=== PATIENT | female | born 1985 | race Caucasian/White ===

== ENCOUNTER → 2020-09-05 17:58 | Outpatient (BNVA) | payer OTHER, SELFPAY | PROVIDERS: Visit Provider Emergency Medicine | DX: Z20.822 Contact with and (suspected) exposure to COVID-19 (principal); R68.89 Other general symptoms and signs | CPT/HCPCS: 87635 ==

== ENCOUNTER → 2022-05-03 16:24 | Outpatient (BNVA) | payer MEDICAID, SELFPAY | PROVIDERS: Visit Provider Nurse Practitioner Family | DX: Z20.822 Contact with and (suspected) exposure to COVID-19 (principal); R05.9 Cough, unspecified | CPT/HCPCS: 87400; 87426 ==

== ENCOUNTER → 2022-07-07 09:36 | Outpatient (BNVA) | payer MEDICAID, SELFPAY | PROVIDERS: PCP Family Medicine; Visit Provider Emergency Medicine | DX: M79.632 Pain in left forearm (principal); Z98.890 Other specified postprocedural states | CPT/HCPCS: 73090 ==

== ENCOUNTER → 2022-11-17 12:46 | Outpatient (BNVA) | payer MEDICAID, SELFPAY | PROVIDERS: PCP Family Medicine; Visit Provider Nurse Practitioner Family | DX: R69 Illness, unspecified (principal); J06.9 Acute upper respiratory infection, unspecified; Z20.822 Contact with and (suspected) exposure to COVID-19 | CPT/HCPCS: 87400; 87426 ==

== ENCOUNTER → 2022-12-26 10:19 | Outpatient (BNVA) | payer MEDICAID, SELFPAY | PROVIDERS: PCP Family Medicine; Visit Provider Nurse Practitioner Family | DX: R68.89 Other general symptoms and signs (principal) | CPT/HCPCS: 87400; 87426 ==

== ENCOUNTER → 2023-03-24 08:48 | Outpatient (BNVA) | payer MEDICAID, SELFPAY | PROVIDERS: Absent Provider Nurse Practitioner; Referring Provider Nurse Practitioner; Visit Provider Nurse Practitioner | DX: M41.84 Other forms of scoliosis, thoracic region (principal); M54.50 Low back pain, unspecified; M54.6 Pain in thoracic spine | CPT/HCPCS: 72072; 72100 ==

== ENCOUNTER → 2023-12-12 11:22 | Outpatient (BNVA) | payer MEDICAID, SELFPAY | PROVIDERS: Visit Provider Nurse Practitioner Family | DX: M54.9 Dorsalgia, unspecified (principal) | CPT/HCPCS: 81000; 87086 ==

== ENCOUNTER → 2024-01-03 13:25 | Outpatient (BNVA) | payer MEDICAID, SELFPAY | PROVIDERS: Visit Provider Family Medicine | DX: S39.012A Strain of muscle, fascia and tendon of lower back, initial encounter (principal); X58.XXXA Exposure to other specified factors, initial encounter | CPT/HCPCS: 72100 ==

== ENCOUNTER → 2024-01-11 13:02 | Outpatient (BNVA) | payer MEDICAID, SELFPAY | PROVIDERS: PCP Nurse Practitioner; Referring Provider Nurse Practitioner; Visit Provider Nurse Practitioner | DX: R31.9 Hematuria, unspecified (principal) | CPT/HCPCS: 81000 ==

== ENCOUNTER 2024-02-19 06:00 | Outpatient (RCR) | payer MEDICAID, SELFPAY | END 2024-02-27 23:59 | disposition home or self-care (01) | LOC: MPT 06:00 | PROVIDERS: PCP Nurse Practitioner; Visit Provider Nurse Practitioner | DX: M54.9 Dorsalgia, unspecified (principal); G89.29 Other chronic pain | CPT/HCPCS: 97110; 97162; G0283 ==

== ENCOUNTER 2024-02-28 06:00 | Outpatient (RCR) | payer MEDICAID, SELFPAY | END 2024-03-29 23:59 | disposition home or self-care (01) | LOC: MPT 06:00 | PROVIDERS: PCP Nurse Practitioner; Visit Provider Nurse Practitioner | DX: M54.9 Dorsalgia, unspecified (principal); G89.29 Other chronic pain | CPT/HCPCS: 97110; G0283 ==

== ENCOUNTER 2024-04-17 15:15 | Outpatient (RCR) | payer MEDICAID, SELFPAY | END 2024-04-26 23:59 | disposition home or self-care (01) | LOC: MPT 15:15 | PROVIDERS: PCP Nurse Practitioner; Visit Provider Nurse Practitioner | DX: M54.9 Dorsalgia, unspecified (principal); G89.29 Other chronic pain | CPT/HCPCS: 97110; G0283 ==

== ENCOUNTER 2024-05-28 10:25 | Outpatient (CLI) | payer MEDICAID, SELFPAY ==
--- NOTE | 2024-05-28 11:00 | MR_ITS ---
WS: [id number] MRI LUMBAR SPINE NONCONTRAST TECHNIQUE: Sagittal T1, T2 and STIR imaging. Axial T1 and T2 imaging. CLINICAL INFORMATION: M54.50 - Low back pain, unspecified COMPARISON: None. FINDINGS: Mild lumbar curve. No acute compression. No high-grade central canal stenosis. L1-L2: Mild facet arthropathy. Spinal canal and foramen are patent. L2-L3: Mild disc bulging. Mild facet arthropathy. Spinal canal and foramen are patent. L3-L4: Mild annular bulging. Narrowing of the RIGHT subarticular recess. Mild facet arthropathy. Spinal canal and foramen are patent. L4-L5: Mild annular bulging. Narrowing of the subarticular recess bilaterally LEFT greater than RIGHT. Mild LEFT foraminal narrowing. Mild facet arthropathy. L5-S1: Mild annular bulging. Narrowing of the RIGHT subarticular recess. RIGHT eccentric disc bulging with an annular fissure. Slight contact of the exiting RIGHT L5 nerve root. Mild facet arthropathy. Visualized pelvic bony structures: Normal. Paravertebral soft tissues: Normal. MR/MR lumbar spine wo con* [id number] IMPRESSION: 1. Mild annular bulging L4-5 with impingement subarticular recess bilaterally 2. Narrowing of the RIGHT L3-4 subarticular recess. 3. RIGHT eccentric disc bulging L5-S1 with a small annular fissure and slight contact of the exiting RIGHT L5 nerve root. 4. Mild facet arthropathy L3-L5.
== END 2024-05-28 10:26 | disposition home or self-care (01) ==
LOC: RAD 10:25
PROVIDERS: PCP Nurse Practitioner; Visit Provider Nurse Practitioner
DX: M51.369 Other intervertebral disc degeneration, lumbar region without mention of lumbar back pain or lower extremity pain (principal); G89.29 Other chronic pain; R93.7 Abnormal findings on diagnostic imaging of other parts of musculoskeletal system; M51.379 Other intervertebral disc degeneration, lumbosacral region without mention of lumbar back pain or lower extremity pain; M47.896 Other spondylosis, lumbar region; M43.8X6 Other specified deforming dorsopathies, lumbar region; M47.897 Other spondylosis, lumbosacral region
CPT/HCPCS: 72148

== ENCOUNTER → 2024-06-11 13:27 | Outpatient (BNVA) | payer MEDICAID, SELFPAY | PROVIDERS: PCP Nurse Practitioner; Visit Provider Orthopaedic Surgery | DX: M51.369 Other intervertebral disc degeneration, lumbar region without mention of lumbar back pain or lower extremity pain (principal); M54.9 Dorsalgia, unspecified; G89.29 Other chronic pain | CPT/HCPCS: 72050; 72110 ==

== ENCOUNTER 2024-08-26 11:20 | Emergency (ER) | payer MEDICAID, SELFPAY ==
[2024-08-26 11:23] VITALS: BP 137/87; PULSE 71; TEMP 36.8; O2SAT 98
--- NOTE | 2024-08-26 11:27 | XR_ITS ---
WS: [id number] XR wrist LT min 3V* [id number] REASON FOR EXAM: wrist pain FINDINGS: Plate and screw fixation of remote mid ulnar fracture. Surgical appliances intact and in proper position and alignment and the fracture site appears healed. Remaining bone of the left wrist demonstrates no acute fracture. No focal bone lesion. Joint spaces of the wrist are intact and well preserved. XR/XR wrist LT min 3V* [id number] IMPRESSION: Postoperative left wrist without significant abnormality.
--- NOTE | 2024-08-26 11:46 | W.ED.UPPEXIN ---
HPI - Extremity Injury (Upper) General: Chief Complaint: Extremity Injury, Upper Stated Complaint: L wrist pain Time Seen by Provider: 08/26/24 11:29 Source: patient Mode of arrival: ambulatory Limitations: no limitations History of Present Illness: Patient is a 39-year-old female who presents to the ED today with left wrist pain. A couple hours ago, patient states she was helping her niece move when she got her hand caught in between a bed frame and the tailgate of her truck, where she bent it a funny way but does not know if it was flexion or extension. She states it is tender over both her distal radius and ulna. Denies any color changes or cold started extremity. Shes has a previous history of injury and surgery to this and has a plate to her ulna. MD complaint: injury to: left and wrist Place: home Severity: moderate Relieving factors: immobilization Exacerbating factors: movement of extremity Associated symptoms: Reports no associated symptoms; Denies weakness in extremities Related Data Previous Rx's ?Medication ?Instructions ?Recorded diclofenac sodium 1 % topical gel 4 g topical QID #100 grams 12/12/23 (Voltaren Arthritis Pain) tizanidine 4 mg tablet 4 mg PO BID PRN muscle spasticity 07/16/24 #30 tabs meloxicam 7.5 mg tablet 7.5 mg PO DAILY PRN back pain #30 07/17/24 tabs Allergies Allergy/AdvReac Type Severity Reaction Status Date / Time Penicillins Allergy Unknown UNKNOWN Verified 08/26/24 11:27 Review of Systems Musc: Reports: joint pain (L wrist); Denies: extremity pain, extremity swelling or joint swelling Neuro: Denies: numbness in extremities, weakness in extremities or sensory changes PFS ED PFSH: Social History Smoking and tobacco/nicotine status: never used tobacco/nicotine Alcohol intake: never Substance/Drug Use: never Female Reproductive History: Spontaneous abortions: No Physical Exam Const: COMMON NORMALS: no acute distress, average body habitus, no limitations, healthy appearing, alert and well nourished Extremity: GENERAL: Yes normal exam except as noted LEFT UPPER EXTREMITY: Yes wrist (distal L wrist pain; no obvious edema/deformity; previous surgical scar) Left wrist: Yes ROM (fairly normal but states this does cause some discomfort) and Yes neurovascular exam (normal) Neuro: COMMON NORMALS: moves all extremities, no focal motor deficits and no sensory deficits noted SENSORIUM/ORIENTATION: Yes alert Course Vital Signs: Vital signs: Vital Signs Temperature 98.3 F 08/26/24 11:23 Pulse Rate 71 08/26/24 11:23 Blood Pressure 137/87 08/26/24 11:23 Pulse Oximetry 98 08/26/24 11:23 Oxygen Delivery Me thod Room Air 08/26/24 11:23 MDM - Extremity Injury (Upper) Medical Decision Making XR of her left wrist obtained and unremarkable. She will be allowed discharge with recommendations to follow-up with primary care in 1 to 2 weeks if symptoms are not improving. Medical Records I reviewed the patient's medical records. Lab Data Radiology Impressions Wrist X-Ray 08/26/24 11:27 IMPRESSION: Postoperative left wrist without significant abnormality. All radiology interpretation(s) finalized by discharge Discharge Plan Discharge Patient Disposition: Home Clinical Impression: Contusion of left wrist Qualifiers: Encounter type: initial encounter Qualified Code(s): S60.212A - Contusion of left wrist, initial encounter Condition: Stable Prescriptions: No Action diclofenac sodium [Voltaren Arthritis Pain] 1 % gel 4 g topical QID Qty: 100 3RF methylprednisolone acetate [Depo-Medrol] 40 mg/mL suspension 40 mg intra-articular ONCE Qty: 1 0RF bupivacaine (PF) 0.25 % (2.5 mg/mL) solution 9 ml intra-articular ONCE Qty: 30 0RF tizanidine 4 mg tablet 4 mg PO BID PRN (Reason: muscle spasticity) Qty: 30 2RF meloxicam 7.5 mg tablet 7.5 mg PO DAILY PRN (Reason: back pain ) Qty: 30 2RF Discharge Orders: Discharge ED (Routine); Ordered 08/26/24 Ordered By: Amanda Curran Referrals: Chandrika Ortez FNP [Primary Care Provider, Nurse Practitioner] Patient Instructions: Contusion, Wrist Sprain (ED), Patient Portal & Michael Instructions Print Language: [place] Leonean Coding Level of Care Code ED Career Information Specialist for Мария Gipson
== END 2024-08-26 12:03 | disposition home or self-care (01) ==
PROVIDERS: Emergency Provider Physician Assistant; PCP Nurse Practitioner
DX: S60.212A Contusion of left wrist, initial encounter (principal); X58.XXXA Exposure to other specified factors, initial encounter
CPT/HCPCS: 73110; 99283

== ENCOUNTER → 2024-09-11 10:35 | Outpatient (BNVA) | payer MEDICAID, SELFPAY | PROVIDERS: PCP Nurse Practitioner; Visit Provider Nurse Practitioner | DX: R11.2 Nausea with vomiting, unspecified (principal); R31.9 Hematuria, unspecified | CPT/HCPCS: 81000; 87086 ==